=== PATIENT | male | born 1990 | race African-American/Black ===

== ENCOUNTER 2021-08-05 04:44 | Emergency (ER) | payer MEDICAID, OTHER ==
[~2021-08-05] VITALS: Ht 195.6 cm; Wt 81.6 kg
[~2021-08-05 04:44] MED LIST: ALBUPOW26 NEB
[2021-08-05] MEDS ORDERED: IPRATROPIUM BROM 0.5 MG/2.5ML INH SOL NEB ONE (07:00)
[2021-08-05] MEDS ORDERED: methylPREDNISolone SOD SUCC 125 MG/2 ML VL IM ONE (07:00)
[2021-08-05] MEDS ORDERED: ALBUTEROL SULF 2.5 MG/0.5ML(0.5%) NEB SOLN NEB ONE (07:00)
[2021-08-05] MEDS ORDERED: PRED20TA2 PO (07:05)
[2021-08-05] MEDS ORDERED: ALB5IS NEB (07:05)
[2021-08-05] MEDS ORDERED: NAPROXEN 500 MG TAB PO ONE (07:45)
[2021-08-05 07:46] VITALS: BP 129/84
== END 2021-08-05 07:54 | disposition home or self-care (01) ==
LOC: EDBD 04:44 → ER 04:44
DX: J45.901 Unspecified asthma with (acute) exacerbation (principal)
CPT/HCPCS: 71045; 94640; 96372; 99283; J2930; J7644

== ENCOUNTER 2022-08-04 06:44 | Emergency (ER) | payer MEDICAID ==
[~2022-08-04] VITALS: Ht 188 cm; Wt 78.0 kg
[~2022-08-04 06:44] MED LIST changes: +ALB5IS NEB; +PRED20TA2 PO
[2022-08-04] MEDS ORDERED: ALBUTEROL SULF 2.5 MG/0.5ML(0.5%) NEB SOLN NEB ONE ×2 (06:45→08:00)
[2022-08-04] MEDS ORDERED: methylPREDNISolone SOD SUCC 125 MG/2 ML VL IV ONE (06:45)
[2022-08-04 07:14] LABS: Basophils # (auto) 0.1 10 ^3/uL (0-0.2); Basophils % (auto) 0.8 % (0.0-2.0); Eosinophils # (auto) 0.8 10 ^3/uL (0-0.8); Eosinophils % (auto) 5.4 % (0.0-7.0); Hematocrit 52.4 % (41.0-53.0); Hemoglobin 17.3 g/dL (13.5-17.5); Lymphocytes # (auto) 4.1 10 ^3/uL (0.4-5.4); Lymphocytes % (auto) 28.9 % (10.0-50.0); Mean Corpuscular Hemoglobin 29.7 pg (28.0-32.0); Mean Corpuscular Hgb Conc. 33.1 g/dL (32.0-36.0); Mean Corpuscular Volume 89.8 fL (80.0-100.0); Monocytes # (auto) 0.8 10 ^3/uL (0-1.3); Monocytes % (auto) 5.6 % (0.0-12.0); Neutrophils # (auto) 8.3 10 ^3/uL (1.6-8.6); Neutrophils % (auto) 59.3 % (37.0-80.0); Red Blood Cells 5.83 10^6/uL (4.5-5.90); Red Cell Distribution Width 14.5 % (11.8-14.3)
[2022-08-04 07:30] LABS: Albumin 4.6 g/dL (3.4-5.0); BUN/Creatinine Ratio 9.2; Potassium 4.3 mmol/L (3.5-5.1)
[2022-08-04 07:32] LABS: Bilirubin, Total 0.5 mg/dL (0.2-1.0); Total Protein 8.1 g/dL (6.4-8.2)
[2022-08-04] MEDS ORDERED: ALBUTEROL SULF 2.5 MG/0.5ML(0.5%) NEB SOLN ONE (07:54)
[2022-08-04] MEDS ORDERED: MAGNESIUM SULFATE 1GM/100ML 100 ML IV ONE (08:00)
[2022-08-04 10:30] VITALS: BP 133/73
[2022-08-04] MEDS ORDERED: PRED10TA PO (11:46)
== END 2022-08-04 11:51 | disposition home or self-care (01) ==
LOC: EDBD 06:44 → ER 06:44
DX: J45.901 Unspecified asthma with (acute) exacerbation (principal)
CPT/HCPCS: 36415; 71045; 80053; 84484; 85025; 85379; 93005; 94644; 96365; 96375; 99285; J2930; J3475